=== PATIENT | female | born 1980 | race Caucasian/White ===

== ENCOUNTER 2016-12-04 16:33 | Emergency (ER) | payer OTHER ==
[~2016-12-04] VITALS: Ht 161.9 cm; Wt 106.1 kg
[~2016-12-04 16:33] MED LIST: HYDR1TAB91 PO; OMEP20CA11 PO; SERT50TA9 PO; VIB100 PO; [UNRECOGNIZED DRUG - CODE] EXT
[2016-12-04 16:37] VITALS: BP 124/78; PULSE 84; RESP 16; O2SAT 97
[2016-12-04] MEDS ORDERED: LACT1CAP73 PO (16:42)
[2016-12-04] MEDS ORDERED: CHOL400D9 PO (16:42)
[2016-12-04 17:43] LABS: BASOPHILS % (AUTO) 0.2 % (0-3); EOSINOPHILS % (AUTO) 0.7 % (0-5); MONOCYTES % (AUTO) 5.8 % (4-12); Mean Corpuscular Volume 85.4 fL (81-100); Platelet Count 200 bil/L (150-400)
--- NOTE | 2016-12-04 17:55 | ED.REPORT ---
HPI-Abd Pain F Under 40 Date of Service Dec 04, 2016 ED Provider: Doc,Ed MD History of Present Illness: 36-year-old female here for abdominal pain. Left lower quadrant pain for a few days now. She has a history of right sided abdominal pain started about 8 months ago he had a workup that showed a lump in her gallbladder and fatty liver but was breast-feeding and no other tests or workup were done. Pain went away. This right lower quadrant pain came back a week or 2 ago and is minimal. the left side is much worse. She has been nauseous and vomiting, she has some dysuria. She has had loose stools but this is her baseline. She thinks they may be more yellow than usua. She has an IUD. Last menstrual period was one week ago, no vaginal discharge. No fever, no pain with intercourse, no new partners. has vasectomy Nursing Notes Stated Complaint: ABDOMINAL PAIN Chief Complaint: Female Abdominal Pain Nursing Notes Reviewed: Yes Allergies: Coded Allergies: Sulfa (Sulfonamide Antibiotics) (Verified Allergy, Severe, HIVES, 12/04/16) Scheduled Amoxicillin/Clav K 875-125 mg (Augmentin 875-125 mg) 1 Each Tablet 1 TABLET PO BID Cholecalciferol (Vitamin D3) (Vitamin D) 400 Unit/1 Ml Drops 1,000 UNIT PO DAILY Lactobacillus Combo No.11 (Probiotic) 1 Each Cap.sprink 1 EACH PO DAILY General Time Seen by MD: 17:54 Chief Complaint Abdominal pain, Nausea, Pelvic pain Hx Obtained From: Patient, Spouse Arrived By: Walk-in Sudden in Onset?: No Onset Occurred: Onset unknown Progression since Onset: Unchanged Location: : LLQ: RLQ Severity: Current: Moderate Severity: Maximum: Severe Similar Sx Previous: Yes Review of Systems Basic Review of Systems Eyes: Vision NL, No discharge ENT: Hearing NL, No nasal congestion, No pharyngeal pain Hematologic: No bleeding, No bruising Endocrine: No cold intolerance, No weight gain, No weight loss Skin: No bruising, No rash, No itch Allergy / Immune: No allergy Neurologic: NL mental status, No weakness, No numbness Psychiatric: Normal thought content Constitutional: Denies: Chills, Fatigue, Fever Respiratory: Denies: Dyspnea on exertion, Non-productive cough Cardiovascular: Denies: Chest pain GI: Reports: Abdominal pain, Nausea, Vomiting Female: Reports: Dysuria, Pelvic pain, Denies: Vaginal discharge Complete sys rev & neg: except as marked. Physical Exam Initial Vital Signs Vital Signs (First) Date Time Temp Pulse Resp B/P Pulse Ox O2 Delivery O2 Flow Rate FiO2 12/04/16 16:37 36.4 84 16 124/78 97 Room Air Initial VS: Reviewed, Vital signs normal Head / Eyes: Atraumatic, Normocephalic, PERRL ENT: Mucous membranes moist, Conjunctiva normal, No scleral icterus Neck: Supple, Non-tender, Full range of motion Lymphatic: No lymphadenopathy Skin: Warm, Dry, No cyanosis Neurologic: Alert, Oriented, Nonfocal Psychiatric: Mood/affect normal, Behavior normal, Normal thought content General/Constitutional: Awake, Alert, No acute distress Respiratory / Chest: Atraumatic, Breath sounds NL, Breath sounds = bilat, No respiratory distress, No rales, No rhonchi, No wheezing, No retractions Cardiovascular: Heart rate NL, Regular rhythm, Heart sounds NL, No murmurs Abdomen: Atraumatic, No guarding, No rebound, BS normoactive, No distention, No hernia, No palpable mass, No pulsatile mass Tenderness/Guarding/Rebound: Positive: Tender LLQ... (Severe), Tender LUQ... ( Severe), Tender RLQ... (Mild), Tender diffuse Pain increases in LLQ with palp of RLQ and RUQ. Pain seems to originate in LLQ and is most severe here. Female Genitourinary: Atraumatic, External genitalia NL, No bleeding, No discharge, No cervical motion tend, Os closed vaginal exam- exam difficult due to excessive tissue and depth of cervix. mucosa pink and moist. Small amount of white discharge noted on the cervix. IUD strings present and seem a bit long at least 2-3 cm. No CMT. She does have left lower quadrant/ovary tenderness. Although the exam itself was not painful for her. Interpretation & Diagnostics Interpretation & Diagnostics: IMPRESSION: 1. Distal left colon diverticulitis. No diverticular abscess or free air identified. 2. Malpositioned intrauterine device. A intrauterine device projects into the posterior myometrium the level of the lower uterine segment. 3. Hepatic steatosis. Lab Results Interpretation Result Diagram: 12/04/16 1730 12/04/16 1730 Test 12/04/16 17:30 12/04/16 17:40 White Blood Count 16.3th/mm3 (3.8-10.1) Red Blood Count 4.72mil/mm3 (3.90-5.20) Hemoglobin 13.2g/dL (12.0-15.6) Hematocrit 40.3% (35.0-46.0) Mean Corpuscular Volume 85.4fL (81-100) Mean Corpuscular Hemoglobin 28.0pg (27.0-35.0) Mean Corpuscular Hemoglobin Concent 32.8% (32.0-37.0) Red Cell Distribution Width 14.6% (12.3-15.4) Platelet Count 200bil/L (150-400) Neutrophils (%) (Auto) 76.0% (40-74) Lymphocytes (%) (Auto) 16.9% (14-46) Monocytes (%) (Auto) 5.8% (4-12) Eosinophils (%) (Auto) 0.7% (0-5) Basophils (%) (Auto) 0.2% (0-3) Sodium Level 137mEq/L (134-144) Potassium Level 3.7mEq/L (3.5-5.2) Chloride Level 99mEq/L (97-108) Carbon Dioxide Level 23mmol/L (18-29) Blood Urea Nitrogen 15mg/dL (6-20) Creatinine 0.67mg/dL (0.57-1.00) Estimat Glomerular Filtration Rate 143mL/min (>59) Glucose Level 89mg/dL (60-99) Calcium Level 9.5mg/dL (8.5-10.1) Magnesium Level 1.9mg/dL (1.6-2.6) Total Bilirubin 0.6mg/dL (0.0-1.2) Aspartate Amino Transf (AST/SGOT) 13U/L (0-50) Alanine Aminotransferase (ALT/SGPT) 11U/L (0-32) Alkaline Phosphatase 61U/L (25-150) Total Protein 7.2g/dL (6.4-8.4) Albumin 4.6g/dL (3.4-5.0) Lipase 30U/L (13-60) Hold Self Top Tube Received (Received) Urine Color Straw (YELLOW) Urine Appearance Clear (CLEAR,HAZY) Urine pH 7.0 (5.0-8.0) Urine Specific [place] 1.015 (1.003-1.035) Urine Protein Negativemg/dL (NEG,TRACE) Urine Glucose (UA) Negativemg/dL (NEGATIVE) Urine Ketones Negativemg/dL (NEGATIVE) Urine Occult Blood Trace (NEGATIVE) Urine Nitrite Negative (NEGATIVE) Urine Bilirubin Negative (NEGATIVE) Urine Urobilinogen Normalmg/dL (NORMAL) Urine Leukocyte Esterase Negative (NEGATIVE) Urine RBC 0-2/hpf (0-2) Urine WBC 0-5/hpf (0-5) Urine Epithelial Cells Moderate/hpf (NONE-MOD) Urine Crystals None seen (NONE SEEN) Urine Bacteria None/hpf (NONE-FEW) Urine Hyaline Casts None/lpf (NONE) Urine Granular Casts None seen (NONE SEEN) Urine Waxy Casts None seen (NONE SEEN) Urine Red Blood Cell Casts None seen (NONE SEEN) Urine White Blood Cell Casts None seen (NONE SEEN) Urine Mucus None seen (None Seen) Urine Trichomonas None seen (NONE SEEN) Urine Yeast None (NONE SEEN) Urinalysis Comment None Urine Culture Reflexed Not indicated Re-Eval/Medical Decision Med Decision/Clinical Course Med Decision/Clinical Course: Dr. Choe radiologist consulted over US result. He could not visualize the entire IUD suspicious it may be expelling itself. Will order CAT scan based on left lower quadrant pain and high elevated white count. Discussed diagnosis of diverticulitis patient states that makes sense that since her stools have been more yellow than normal and she has been feeling bloated. Also discussed the risk there were clue cells found on her wet mount. Lacking BV symptoms and metronidazole not great with . f/u with pcp if vaginal symptoms increase. discussed antibiotics and breast-feeding.discussed will need to folllow up wiht pcp for IUD removal tuesday. Discharge & Departure Shift Change Sign-Out Laboratory Evaluation: Lab evaluation discussed Imaging Studies: Imaging discussed Procedures: Results discussed Response to Therapy: Improved Primary Impression: Diverticulitis Diverticulitis site: unspecified part of intestinal tract Diverticulitis bleeding: without bleeding Diverticulitis complication: without perforation or abscess Qualified Code: K57.92 - Diverticulitis of intestine, part unspecified, without perforation or abscess without bleeding Additional Impression: Malpositioned IUD Encounter type: initial encounter Qualified Code: T83.89XA - Other specified complication of genitourinary prosthetic devices, implants and grafts , initial encounter Disposition: Home Discharge Condition All VS Reviewed: Yes Condition: Stable Patient Instructions: Diverticulitis (ED), Intrauterine Device (DC) Additional Instructions: Taking your antibiotics as prescribed, breast-feeding is safe with these. Lots of rest. Drink fluids. Take Tylenol as needed for pain. Return immediately if fevers, increasing pain or any other worsening symptoms. Otherwise follow- up with your PCP on Tuesday. You must be rechecked on Tuesday. your IUD was also shown to be malpositioned. This may need to be removed. YOU should check with your doctor on Tuesday about this as well. you should rest as much as possible and this includes taking a few days off work Referrals: Yemi Rodríguez DO (PCP) EDSupervising Provider for APC: Chantal Duarte MD copies to: Yemi Rodríguez DO; Chantal Duarte MD, Linnea K ARNP Dec 04, 2016 17:55
[2016-12-04 18:05] LABS: Magnesium 1.9 mg/dL (1.6-2.6)
[2016-12-04 18:16] LABS: APPEARANCE,URINE CLEAR (CLEAR,HAZY); COLOR,URINE STRAW (YELLOW); OCCULT BLOOD,URINE TRACE (NEGATIVE); UROBILINOGEN,URINE NORMAL (NORMAL)
--- NOTE | 2016-12-04 19:36 | DRSVH ---
PROCEDURE: US PELVIC SONOGRAM + TRANSVAGINAL SONOGRAM INDICATIONS: lower abd pain TECHNIQUE: Real-time scanning was performed of the pelvic organs, with image documentation. Additional endovagi nal scanning was necessary due to incomplete visualization of the adnexal and endometrial structures by transabdominal scanning. COMPARISON: None. FINDINGS: Transabdominal scanning: Limited scanning through the kidneys shows no hydronephrosis. No pathologi c free abdominal or pelvic fluid. Endovaginal scanning: Uterus: Uterus is normal in size at 9.2 x 4.7 x 4.0 cm. The endometrium measures 10.0 mm in combine d thickness. Intrauterine device is noted at the lower uterine segment/cervical bowel. Ovaries: Right adnexa measures 3.6 x 2.1 x 2.2 cm. Left adnexa measures 3.7 x 2.6 x 2.8 cm. Small follicular cysts noted in the adnexa bilaterally. IMPRESSION: 1. Intrauterine device at lower uterine segment/cervical canal. 2. Bilateral ovarian follicular cysts. Dictated by: Josette Choe MD, PhD on 12/04/2016 at 19:32 Approved by: Josette Choe MD, PhD on 12/04/2016 at 19:35
[2016-12-04 20:07] VITALS: BP 126/70; PULSE 90; RESP 18; O2SAT 98
--- NOTE | 2016-12-04 20:46 | DRSVH ---
PROCEDURE: CT ABDOMEN AND PELVIS WITH CONTRAST ([id number]) INDICATIONS: lower abd pain TECHNIQUE: After the administration of intravenous contrast, 5 mm thick sections acquired from the diaphragm to the symphysis. 5 mm coronal and sagittal reformats were acquired. For radiation dose reduction, the following was used: automated exposure control, adjustment of mA and/or kV according to patient siz e. COMPARISON: None. FINDINGS: Image quality: Excellent. ABDOMEN: Lung bases: Lung bases are clear. Heart size is normal. Solid organs: Liver and spleen are normal in size and enhancement. Diffuse fatty infiltration of the liver is noted. Gallbladder is within normal limits. Biliary system is non dilated. Pancreas enhan claudette normally. No adrenal nodules. Kidneys demonstrate normal size and enhancement, without hydronep hrosis. Peritoneum and bowel: Bowel loops demonstrate normal wall thickness and caliber. Scattered diverticu li noted in the colon. Mild inflammatory changes noted adjacent to the distal left colon and region of diverticulitis compatible with diverticulitis. No free fluid or air. The appendix is normal. Nodes and vessels: No retroperitoneal or mesenteric adenopathy by size criteria. Aorta and inferior vena cava are normal in size. Miscellaneous: No ventral hernias. PELVIS: Genitourinary: Bladder wall thickness is normal. Intrauterine device is malpositioned. Intrauterine device projects into the posterior myometrium the level of the lower uterine segment. Small bilater al adnexal cysts are noted. Miscellaneous: No inguinal hernias or adenopathy. Bones: No suspicious bony lesions. No vertebral body compression fractures. IMPRESSION: 1. Distal left colon diverticulitis. No diverticular abscess or free air identified. 2. Malpositioned intrauterine device. A intrauterine device projects into the posterior myometrium the level of the lower uterine segment. 3. Hepatic steatosis. Dictated by: Josette Choe MD, PhD on 12/04/2016 at 20:40 Approved by: Josette Choe MD, PhD on 12/04/2016 at 20:44
[2016-12-04] MEDS ORDERED: Amoxicillin-Clav 875-125 mg Tablet PO ONE (21:25)
[2016-12-04] MEDS ORDERED: AMOX-366 PO (21:26)
[2016-12-04 21:36] VITALS: BP 116/75; PULSE 78; RESP 16; O2SAT 100
== END 2016-12-04 21:37 | disposition home or self-care (01) ==
LOC: SED 16:33
DX: K57.92 Diverticulitis of intestine, part unspecified, without perforation or abscess without bleeding (principal); T83.89XA Other specified complication of genitourinary prosthetic devices, implants and grafts, initial encounter; Y84.8 Other medical procedures as the cause of abnormal reaction of the patient, or of later complication, without mention of misadventure at the time of the procedure; Y93.9 Activity, unspecified; Y92.9 Unspecified place or not applicable; Y99.9 Unspecified external cause status; Z88.2 Allergy status to sulfonamides
CPT/HCPCS: 36415; 74177; 76830; 76856; 80053; 81000; 81025; 83690; 83735; 85025; 87210; 87491; 87591; 99284; Q9967